=== PATIENT | female | born 1940 | race Caucasian/White ===

== ENCOUNTER → 2021-08-10 | Outpatient (CLI) | payer MEDICARE, OTHER ==
[~2021-08-10] MED LIST: IOHEXOL 300 MG/ML 100ML VIAL. IV ONE; METO-239 PO
--- NOTE | 2021-08-10 14:08 | KCIC ---
EXAM: Lumbar spine CT without and with contrast. HISTORY: Compression fracture. TECHNIQUE: Computed tomographic images of the lumbar spine were obtained without and with contrast. M ultiplanar reformatting was performed. *One or more of the following individualized dose reduction techniques were utilized for this examina tion: 1. Automated exposure control. 2. Adjustment of the mA and/or kV according to patient size. 3. Use of iterative reconstruction technique. COMPARISON: None. FINDINGS: There is a moderate left greater than right anterior wedge compression fracture of L1, with approximately one third decreased in anterior vertebral body height. There is is likely late subacut e or chronic in etiology. There is slight deformity of the left L2 and L3 transverse processes, devel opment or due to healed fractures. There is deformity of the sacrum at the level of S2 likely due to a healed fracture. There is levoscoliosis and hyperlordosis. There is 2 mm grade 1 anterolisthesis of L2 on L3 and L3 on L4, 6 mm grade 1 anterolisthesis of L4 and L5 and 3 mm grade 1 anterolisthesis of L5 on S1. There is multilevel endplate remodeling and disc space calcification. There is a vacuum phenomenon within the disc space at L5-S1. There are few small endplate Schmorl's nodes. There is bone demineralization. T here is decreased interspinous space and degenerative subchondral cyst formation involving the spinou s processes, suggesting a component of Baastrup's disease. There is an infrarenal abdominal aortic aneurysm measuring 3.9 cm. There is calcified atherosclerotic plaque involving the aorta and aortic branch vessels. There is an incidental accessory left renal ar naeem. There is left renal cortical scarring. There is a small simple right renal cyst. Follow up is n ot routinely performed for simple cysts. There is suspected hepatic steatosis. At L1-L2, there is a disc bulge and endplate remodeling. There is mild bilateral facet arthropathy. T here is mild bilateral foraminal stenosis. At L2-L3, there is a right paracentral disc protrusion superimposed on a disc bulge and endplate orsa deling. There is mild bilateral facet arthropathy. There is mild central canal stenosis. At L3-L4, there is a disc bulge and endplate remodeling. There is severe bilateral facet arthropathy. There is grade 1 anterolisthesis. There is mild central canal stenosis. At L4-L5, there is a disc bulge and endplate remodeling. There is severe bilateral facet arthropathy. There is grade 1 anterolisthesis. There is moderate central canal stenosis. At L5-S1, there is a disc bulge and endplate remodeling. There is mild right and severe left facet ar thropathy. There is no stenosis. IMPRESSION: 1. Moderate compression fracture of L1. This is likely subacute or chronic in etiology. 2. Chronic appearing sacral fracture. 3. Deformity of the left L2 and L3 transverse processes, likely developmental or due to healed fractu res. 4. Multilevel degenerative change involving the lumbar spine, described in detail above. This results in stenosis at the aforementioned levels. The central canal stenosis is most significant at L4-L5. 5. Lumbar scoliosis, hyperlordosis and multilevel listhesis. 6. 3.9 cm abdominal aortic aneurysm. 7. Bone demineralization. Electronically signed by: Maureen Florian MD (08/10/2021 2:06 PM) [id number]
== END ==
LOC: KCIC CT 12:21
PROVIDERS: ATTEND Nurse Practitioner Family
DX: S32.010A Wedge compression fracture of first lumbar vertebra, initial encounter for closed fracture (principal); M47.817 Spondylosis without myelopathy or radiculopathy, lumbosacral region; M48.061 Spinal stenosis, lumbar region without neurogenic claudication; M51.27 Other intervertebral disc displacement, lumbosacral region; M43.17 Spondylolisthesis, lumbosacral region; M51.46 Schmorl's nodes, lumbar region; M43.8X6 Other specified deforming dorsopathies, lumbar region; M41.86 Other forms of scoliosis, lumbar region; I71.4 Abdominal aortic aneurysm, without rupture; I70.0 Atherosclerosis of aorta; N28.1 Cyst of kidney, acquired; X58.XXXA Exposure to other specified factors, initial encounter; Y93.89 Activity, other specified; Y92.89 Other specified places as the place of occurrence of the external cause; Y99.8 Other external cause status
CPT/HCPCS: 72133; 82565; Q9967

== ENCOUNTER → 2022-03-08 | Outpatient (CLI) | payer MEDICARE, OTHER ==
[~2022-03-08] MED LIST changes: +BUPIVACAINE MPF 0.5% 10 ML VIAL. INT ART ONE; -IOHEXOL 300 MG/ML 100ML VIAL. IV ONE; +IOHEXOL 300 MG/ML 50 ML VIAL. INT ART ONE; +LIDOCAINE 1% Multi-Dose 20 ML VIAL. ID ONE; +TRIAMCINOLONE PRES.FREE 40 MG/ML VIAL. INT ART ONE
--- NOTE | 2022-03-09 10:08 | KCIC ---
EXAM: XR HIP (WITH OR WITHOUT PELVIS)LEFT 1 VIEW 03/08/2022 1:55 PM CLINICAL INDICATION: Pain, arthritis. Pain with weightbearing. COMPARISON: None TECHNIQUE: AP view of the pelvis. Frog-leg lateral view of the left hip FINDINGS: No acute fracture. Alignment is normal. There is severe left hip joint space narrowing wit h [id number] articulation superiorly, and subchondral cysts and sclerosis in the acetabulum and fem oral head. There are bulky femoral head osteophytes. There is degenerative remodeling of the left anneliese tabulum and proximal migration of the femur. The right hip joint space maintained. No pubic symphysis or sacroiliac joint widening. There is lumbar degenerative disc disease. Complications are seen in t he aorta. There is suture material in the pelvis. 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 Electronically signed by: Jessika Farrell MD (03/09/2022 10:06 AM) [id number]
--- NOTE | 2022-03-09 13:51 | KCIC ---
Exam Date: 03/08/2022 1:55 PM IR ARTHROCENT INT JT ASP/INJ LT Indication: Reason: Left hip pain, arthritis, hurts to bear weight. DJD. / Spl. Instructions: 40mg Ke nalog,1mL Lidocaine,1mL Bupivicaine. 5 sec fl, 2 images. / History: . PROCEDURE NOTE FOR FLUOROSCOPIC GUIDED NEEDLE PLACEMENT, IODINATED CONTRAST INJECTION, AND LEFT HIP T HERAPEUTIC INJECTION HISTORY: LEFT hip pain. PROCEDURE: A timeout was performed to ensure that the patient's name and procedure matched our inform ation. The staff personally assured that informed consent was obtained. After the risks, benefits a nd alternatives to the procedure were discussed with the patient, the patient elected to proceed. Und er fluoroscopic guidance, a suitable target was selected and the overlying skin was marked. The patie nt was prepped and draped in the usual sterile fashion. Local anesthesia with 5 cc lidocaine was give n. Under fluoroscopic guidance, a 20 gauge spinal needle was inserted through the anesthetized tract into the LEFT hip joint. Intra-articular location was confirmed by a test injection of 0.5 cc Isovue 200. The joint was then injected with a combination of 1 cc Kenalog (40 mg/ml), 1 cc lidocaine, and 1 cc 0.5% Marcaine (Bupivacaine). The patient tolerated the procedure very well without any immediate adverse consequence. The patient reported pain relief in the hip following the procedure. COMPLICATIONS: None. Total fluoroscopy time: 5 seconds Fluoroscopic images: 0 IMPRESSION: Successful fluoroscopic-guided needle placement, iodinated contrast injection and LEFT h ip therapeutic injection. The patient reported pain relief in the hip following the procedure. Electronically signed by: Jeremiah Bui MD (03/09/2022 1:48 PM) [id number]
== END | disposition home or self-care (01) ==
LOC: KCIC 13:36
PROVIDERS: ATTEND Physical Medicine & Rehabilitation
DX: M16.12 Unilateral primary osteoarthritis, left hip (principal); Z79.899 Other long term (current) drug therapy; Z88.0 Allergy status to penicillin; Z88.2 Allergy status to sulfonamides; Z88.5 Allergy status to narcotic agent
CPT/HCPCS: 20610; 73501; 77002; J3301; J3490; Q9967

== ENCOUNTER → 2022-03-29 | Outpatient (CLI) | payer MEDICARE, OTHER ==
[~2022-03-29] MED LIST changes: -BUPIVACAINE MPF 0.5% 10 ML VIAL. INT ART ONE; -IOHEXOL 300 MG/ML 50 ML VIAL. INT ART ONE; -LIDOCAINE 1% Multi-Dose 20 ML VIAL. ID ONE; -TRIAMCINOLONE PRES.FREE 40 MG/ML VIAL. INT ART ONE
--- NOTE | 2022-03-30 09:56 | RAD ---
US VENOUS REFLUX History: Reason: Bilateral Edema; Chronic Venous Insufficiency / Spl. Instructions: / History: Comparison: None. Discussion: Multiple longitudinal and transverse high resolution real-time images of the superficial venous syste m of bilateral lower extremity were obtained. Right greater saphenous vein: No evidence of reflux. Proximal aspect measures 6.6 mm tapering to 2.7 mm. No occlusion. Right small saphenous vein: No evidence of reflux. Proximal aspect measures 3.3 mm tapering to 3.1 mm . No occlusion. 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 No evidence of ref lux within the proximal aspect. Left small saphenous vein: No evidence of reflux. Proximal aspect measures 3.5 mm tapering to 2.3 mm. No occlusion. Impression: 1. No evidence of superficial venous reflux. Electronically signed by: Jermaine Silveira DO (03/30/2022 9:54 AM) [id number]
== END ==
LOC: US 12:51
PROVIDERS: ATTEND Internal Medicine Cardiovascular Disease
DX: I87.2 Venous insufficiency (chronic) (peripheral) (principal); Z95.1 Presence of aortocoronary bypass graft
CPT/HCPCS: 93970